=== PATIENT | male | born 1970 | race Caucasian/White ===

== ENCOUNTER 2016-06-08 13:44 | Day surgery (SDC) | payer OTHER ==
[~2016-06-08] VITALS: Ht 185.4 cm; Wt 130.8 kg
[~2016-06-08 13:44] MED LIST: ATEN50TA PO; CARAS PO; CIPR500T4 PO; LD2VS100B MM; LIPA1CAP6 PO; LORA10TA3 PO; LOSA50TA2 PO; MAG355OR15 PO; PANT40TA3 PO; PARO10TA26 PO; TAMS-14 PO; ZOLP10TA PO
[2016-06-08 14:15] VITALS: Ht 185.4 cm; Wt 130.8 kg
[2016-06-08] MEDS ORDERED: AMLO-218 PO (14:50)
[2016-06-08 15:33] VITALS: BP 137/75; PULSE 78; RESP 23
[2016-06-08] MEDS ORDERED: PROPOFOL 60 ML ONE (15:49)
[2016-06-08 16:19] VITALS: BP 115/66; PULSE 67; RESP 24
--- NOTE | 2016-06-09 12:03 | GILP ---
DATE OF PROCEDURE: 06/08/2016 PROCEDURE: Colonoscopy. BRIEF HISTORY AND INDICATIONS: The patient is being evaluated for anorectal discomfort post-hemorrh oidectomy as well as incontinence. PREMEDICATION: Monitored anesthesia care by anesthesiologist. SURGEON: Patrick Taylor MD. INSTRUMENT USED: Olympus colonoscope. PREPARATION: Adequate. TECHNIQUE: After informed consent, with the patient/relatives understanding the procedure, its indic ations potential risks and complications, including but not limited to: allergic reaction, bleeding, perforation, infection, missed lesions and after all pertinent questions were answered to the patie nt's satisfaction, the patient/relatives signed the witnessed informed consent. Following this, premedication was administered slowly IV push by under careful cardiovascular and re spiratory monitoring with pulse oximetry, automatic blood pressure and quality assurance monitor body. Once the sedativ e effect was achieved, the patient was placed in the left lateral decubitus position, digital rectal examination was performed. The colonoscope was then introduced and advanced under visual control th roughout all segments of the colon including: the rectum, sigmoid, descending colon, splenic flexure , transverse colon, hepatic flexure, ascending colon and finally reaching the cecum which was clearl y identified by transillumination, finger indentation and the ileocecal valve. Careful examination o f the mucosa of the lower gastrointestinal tract both on insertion as well as withdrawal of the inst rument disclosed the following findings: Rectal Examination: The perianal area is unremarkable. The anorectal sphincter appears slightly def ormed and scarred. We dilated mildly digitally. Colonic Mucosa: The colonoscope was then introduced and the area was carefully examined including re troflexion. There were some mucosal irregularities as expected post-surgically. No ulcerations, no abnormality of tissue appears to be present. The remainder of the colonic mucosa was unremarkable throughout. The ileocecal valve was clearly identified and appears unremarkable. The instrument wa s withdrawn reexamining the mucosa in detail. No additional abnormalities are noted. The instrument was then withdrawn, the patient tolerated the procedure well and was transferred out of the Endoscopy Suite awake and in good condition to continue recovery under observation. IMPRESSION: 1. Slight narrowing and scarring of the anorectal sphincter dilated digitally. 2. Some mucosal irregularities present as expected post-surgical hemorrhoidectomy. 3. Otherwise, normal colonoscopy to cecum. PLAN: Continue present regimen. Reevaluation by attending surgeon. Dictated By: PATRICK TAYLOR MS/GIDEON Conf#: [id number] DID#: [id number]
== END 2016-06-08 16:38 | disposition home or self-care (01) ==
LOC: GIL 13:44
PROVIDERS: ATTEND Internal Medicine Gastroenterology
DX: K62.89 Other specified diseases of anus and rectum (principal); I10 Essential (primary) hypertension; E78.5 Hyperlipidemia, unspecified
CPT/HCPCS: 45378; Z7610

== ENCOUNTER 2016-06-27 11:53 | Day surgery (SDC) | payer OTHER ==
[2016-06-26 10:39] VITALS: BMI 37.8
[2016-06-27] VITALS (10 sets, daily range): BP systolic 119–175; BP diastolic 73–94; PULSE 75–106; RESP 12–22; Ht 185.4 cm; Wt 127.0 kg
[~2016-06-27] VITALS: Ht 185.4 cm; Wt 127.0 kg
[~2016-06-27 11:53] MED LIST changes: +AMLO-218 PO; -ATEN50TA PO; -CIPR500T4 PO
[2016-06-27] MEDS ORDERED: CEFAZOLIN 2 GM/50 ML (PMX) 50 ML IVPB ONE (12:30)
[2016-06-27] MEDS ORDERED: SOD CHLORIDE 0.9% 1,000 ML IV SCH (12:30)
[2016-06-27 13:04] LABS: BASOPHILS % 0.3 % (0.0-2.0); EOSINOPHILS # 0.1 10^3/ul (0.0-0.5); EOSINOPHILS % 1.5 % (0.0-7.0); HEMATOCRIT 43.6 % (42.0-52.0); LYMPHOCYTES % 33.8 % (15.0-51.0); MEAN CORPUSCULAR HEMOGLOBIN 31.6 pg (29.0-33.0); MEAN CORPUSCULAR HGB CONC 34.4 g/dl (32.0-37.0); MEAN CORPUSCULAR VOLUME 91.7 fl (82.0-101.0); MEAN PLATELET VOLUME 7.5 fl (7.4-10.4); MONOCYTE # 0.6 10^3/ul (0.3-0.9); MONOCYTES % 9.4 % (0.0-11.0); NEUTROPHIL # 3.3 10^3/ul (1.6-7.5); PLATELET COUNT 241 10^3/UL (140-440); RED BLOOD COUNT 4.75 10^6/ul (4.70-6.10); RED CELL DISTRIBUTION WIDTH 12.6 % (11.5-14.5)
[2016-06-27 13:06] LABS: ALBUMIN 4.5 g/dl (3.3-4.9)
[2016-06-27 13:09] LABS: ALBUMIN/GLOBULIN RATIO 1.5; BILIRUBIN,INDIRECT 1.4 mg/dl (0-1.1); BILIRUBIN,TOTAL 1.4 mg/dl (0.2-1.3); TOTAL PROTEIN 7.5 g/dl (6.1-8.1)
[2016-06-27 13:13] LABS: CREATININE 0.76 mg/dl (0.61-1.24); POTASSIUM 3.9 mmol/L (3.5-5.1)
[2016-06-27 13:23] LABS: INR 0.98
[2016-06-27 13:24] LABS: PARTIAL THROMBOPLASTIN TIME 26.8 Sec (25.0-35.0)
[2016-06-27 13:25] LABS: CONDITION 1
[2016-06-27] MEDS ORDERED: LIDOCAINE 2% (MDV) 20 ML INJ INJ ONE (13:35)
[2016-06-27] MEDS ORDERED: BUPIVACAINE 0.5% (SDV) 30 ML INJ INJ ONE (13:35)
[2016-06-27] MEDS ORDERED: MIDAZOLAM 1 MG/ML 2 ML INJ ONE (13:50)
[2016-06-27] MEDS ORDERED: LIDOCAINE 2% (SDV) 5 ML INJ ONE (13:50)
[2016-06-27] MEDS ORDERED: KETAMINE 500 MG INJ ONE (13:50)
[2016-06-27] MEDS ORDERED: SUCCINYLCHOLINE CHLORIDE 100 MG/5 ML SYG IV ONE (13:50)
[2016-06-27] MEDS ORDERED: PROPOFOL 20 ML ONE ×2 (13:50→14:17)
[2016-06-27] MEDS ORDERED: FENTAnyl 50 MCG/ML VIAL ONE (13:50)
[2016-06-27] MEDS ORDERED: CEFAZOLIN 1 GM INJ ONE (13:51)
[2016-06-27] MEDS ORDERED: PROCHLORPERAZINE 10 MG INJ IV PRN (14:00)
[2016-06-27] MEDS ORDERED: LORAZEPAM 2 MG INJ IV PRN (14:00)
[2016-06-27] MEDS ORDERED: HYDROmorphONE (0.2 MG/ML) 10ML SYG IV PRN ×2 (14:00)
[2016-06-27] MEDS ORDERED: ONDANSETRON 4 MG INJ IV PRN (14:00)
[2016-06-27] MEDS ORDERED: METOCLOPRAMIDE 10 MG INJ IV PRN (14:00)
[2016-06-27] MEDS ORDERED: FENTAnyl 50 MCG/ML VIAL IV PRN (14:00)
[2016-06-27] MEDS ORDERED: KETOROLAC 30 MG INJ IV ONE (14:00)
[2016-06-27] MEDS ORDERED: OXYCODONE/ACETAMINOPHEN (5/325) TAB PO PRN ×2 (14:00)
[2016-06-27] MEDS ORDERED: ONDANSETRON 4 MG INJ ONE (14:14)
[2016-06-27] MEDS ORDERED: METOCLOPRAMIDE 10 MG INJ ONE (14:14)
[2016-06-27] MEDS ORDERED: FAMOTIDINE 20 MG INJ ONE (14:14)
[2016-06-27] MEDS ORDERED: LIDOCAINE 2% (MDV) 20 ML INJ ONE (14:17)
[2016-06-27] MEDS ORDERED: BUPIVACAINE 0.5% (SDV) 30 ML INJ ONE (14:17)
[2016-06-27] MEDS ORDERED: HYDROmorphONE 2 MG/ML SYG ONE (14:33)
[2016-06-27] MEDS ORDERED: HYDROCODONE/APAP (5/325) TAB PO ONE (15:00)
[2016-06-27] MEDS ORDERED: hydrALAzine 20 MG INJ IV PRN (15:00)
[2016-06-27] MEDS ORDERED: LABETALOL HCL 20MG INJ IV PRN (15:00)
[2016-06-27] MEDS ORDERED: DIPHENHYDRAMINE 50 MG INJ IV PRN (16:00)
[2016-06-27] MEDS ORDERED: MEPERIDINE 25 MG INJ IV PRN (16:00)
--- NOTE | 2016-06-27 16:23 | OPR ---
DATE OF OPERATION: 06/27/2016 INDICATION: This is a 45-year-old male with anal stenosis. He requests surgical repair. Risks, al ternatives, benefits, and personnel were discussed with the patient. The patient expressed understa nding and consents to the operation. PREOPERATIVE DIAGNOSIS: Anal stenosis. POSTOPERATIVE DIAGNOSIS: Anal stenosis. OPERATION PERFORMED: 1. Examination under anesthesia. 2. Anal dilatation. 3. Rigid proctoscopy. SURGEON: Geni Clayton MD SPECIMENS: None. COMPLICATIONS: None. ANESTHESIA: General. PROCEDURE: The patient was taken to the OR and prepped and draped in the usual sterile fashion. Shrestha rgical timeout was performed. IV antibiotics were given. Rigid proctoscopy was performed. No evid ence of any masses or lesions. Hill Goldberg was used to examine the anus. There was minor scarrin g. Tissues were freed with a #15 blade in the left lateral area. The scar tissue release allowed m ore pliability of the anus. There was good hemostasis. Additionally, small incisions were made in the scar tissue in the right lateral and left lateral areas. There was good hemostasis. Local anes thesia was injected. Dry dressings were applied. Dictated By: GENI CLAYTON MD SB/GIDEON Conf#: [id number] DID#: [id number]
== END 2016-06-27 16:36 | disposition home or self-care (01) ==
LOC: SDS 11:53
PROVIDERS: ATTEND Surgery
DX: K62.4 Stenosis of anus and rectum (principal); K21.9 Gastro-esophageal reflux disease without esophagitis; E78.5 Hyperlipidemia, unspecified; I10 Essential (primary) hypertension; E66.01 Morbid (severe) obesity due to excess calories; Z68.36 Body mass index [BMI] 36.0-36.9, adult
CPT/HCPCS: 45905; 80053; 85025; 85610; 85730; J0330; J0690; J1170; J1200; J1885; J2250; J2405; J2765; J3010; Z7512; Z7610

== ENCOUNTER 2016-09-19 11:29 | Day surgery (SDC) | payer OTHER ==
[~2016-09-19] VITALS: Ht 185.4 cm; Wt 127.2 kg
[2016-09-19 13:47] VITALS: Ht 185.4 cm; Wt 127.2 kg
[2016-09-19 14:36] VITALS: BP 132/75; PULSE 74; RESP 16
[2016-09-19] MEDS ORDERED: PROPOFOL 20 ML ONE ×2 (17:11→17:27)
[2016-09-19 17:50] VITALS: BP 145/76; PULSE 74; RESP 20
--- NOTE | 2016-09-23 20:58 | GILP ---
DATE OF PROCEDURE: 09/19/2016 DATE: 09/19/2016 NAME OF PROCEDURE: Esophagogastroduodenoscopy with biopsies. SURGEON: Jeovanny Taylor MD. HISTORY AND INDICATIONS: The patient is being evaluated for history of gastric polyps. PREMEDICATION: Monitored anesthesia care by anesthesiologist. INSTRUMENT USED: Olympus panendoscope. TECHNIQUE: After informed consent, with the patient/relatives understanding the procedure, its indic ations, potential risks, and complications, including but not limited to: allergic reaction, bleedin g, perforation or infection, and after all pertinent questions were answered to the patient's satisf action, the patient/relatives signed witnessed informed consent. Following this, premedication was administered slowly IV push under careful cardiovascular and respi ratory monitoring with pulse oximetry, automatic blood pressure and gambling monitor. Once the sedative effect was achieved the patient was place in the left lateral decubitus, the panen doscope was introduced and advanced under visual control. Careful examination of the upper gastrointestinal tract, both on insertion as well as withdrawal of the instrument disclosed the following findings: ESOPHAGUS: The distal esophagus shows significant erythema, edema, and superficial erosion of the m ucosa. STOMACH: Upon entrance to the stomach air was insufflated, the gastric romero distended normally. T here is erythema and edema of the mucosa of a moderate degree. Biopsies were obtained to rule out H . pylori infection. PYLORUS: The pylorus appears patent and within normal limits, with no evidence of gastric outlet ob struction. DUODENUM: The duodenal mucosa was carefully examined in the duodenal bulb as well as the second por tion of the duodenum and appears unremarkable with no evidence of duodenitis, ulcer, or neoplasm. The instrument was then withdrawn, the patient tolerated the procedure well and was transfer out of the endoscopy suite awake, and in good condition to continue recovery under observation IMPRESSION: 1. Erosive esophagitis. 2. Gastritis, rule out Helicobacter pylori infection. Biopsies obtained. PLAN: The patient will be treated with PPIs. Further recommendation will depend on patient's clini viet course as well as review of biopsies. Dictated By: JEOVANNY TAYLOR MS/NTS Conf#: [id number] DID#: [id number] CC: JEOVANNY TAYLOR;*EndCC*
== END 2016-09-20 08:17 | disposition home or self-care (01) ==
LOC: GIL 11:29
PROVIDERS: ATTEND Internal Medicine Gastroenterology
DX: K29.50 Unspecified chronic gastritis without bleeding (principal); K20.8 Other esophagitis; I10 Essential (primary) hypertension; E66.01 Morbid (severe) obesity due to excess calories; Z68.37 Body mass index [BMI] 37.0-37.9, adult; F41.9 Anxiety disorder, unspecified
CPT/HCPCS: 43239; 88305; 88312; 88313; Z7610

== ENCOUNTER 2018-02-26 13:06 | Day surgery (SDC) | END 2018-02-26 16:11 | disposition home or self-care (01) ==